=== PATIENT | female | born 1985 | race Caucasian/White ===

== ENCOUNTER 2019-08-14 13:53 | Emergency (ER) | payer BC, SELFPAY ==
[2019-08-14 14:03] VITALS: BP 130/73; PULSE 70; RESP 14; TEMP 36.8; O2SAT 100
--- NOTE | 2019-08-14 14:24 | ED.URI ---
HPI - URI/Sore Throat General Chief Complaint: Upper Respiratory Infection Stated Complaint: Headache/sinus pressure Time Seen by Provider: 08/14/19 14:15 Source: patient Mode of arrival: ambulatory Limitations: no limitations History of Present Illness HPI Narrative: Tricia Christensen is a 33 yo female with a PMH recurrent sinusitis, comes to [facility] care with nasal congestion and frontal headache. Was sent home from work for complaints of not feeling well; states is had no fever, headache on and off for the last 3 to 4 days Related Data Home Medications Medication Instructions Recorded Confirmed sertraline 25 mg PO DAILY 08/14/19 08/14/19 Allergies Allergy/AdvReac Type Severity Reaction Status Date / Time Penicillins Allergy Unknown Other Verified 08/14/19 14:10 Review of Systems Review of Systems: Narrative: CONSTITUTIONAL: Denies fever, chills, sweats. EYES: Denies visual changes, redness, discharge. ENT: Denies rhinorrhea, has congestion, sore throat, otalgia.has sinus headache CARDIOVASCULAR: Denies chest pain, palpitations, edema. RESPIRATORY: Denies dyspnea, wheezing, cough GASTROINTESTINAL: Denies abdominal pain, nausea, vomiting, diarrhea. GENITOURINARY: Denies dysuria, hematuria, abnormal discharge SKIN: Denies rash or itching. NEUROLOGIC: Denies numbness, or focal weakness. PSYCHIATRIC: Denies anxiety or depression. [facility] Family History Family History Other Diabetes mellitus High cholesterol Social History Social History (Updated 08/14/19 @ 14:27 by Giselle Snyder CNP) Smoking status: Current every day smoker Alcohol intake: never Comments At time of signature, I agree with nursing past medical, surgical, social and family history. There is no relevant family history pertinent to the presenting complaint. Exam Narrative: Exam Narrative: GENERAL: This is a well-nourished, well-developed patient, in mild apparent distress. HEAD: normocephalic, atraumatic. EYES: Sclera clear/white. Vision is grossly intact. EARS: External ears normal, auditory canals clear and without drainage, TMs normal without perforation. Hearing grossly intact. NOSE: External nose normal with nasal discharge, nares with redness, has rhinorrhea. Green discharge THROAT: Mucous membranes moist, posterior pharynx erythema NECK: Neck supple, non-tender ly. CARDIOVASCULAR: Regular rate and rhythm without murmurs, gallops, or rubs. RESPIRATORY: Clear to auscultation. Breath sounds equal bilaterally. No wheezes, rales, or rhonchi. GASTROINTESTINAL: Abdomen soft, SKIN: warm, intact with no suspicious lesions or rash, good texture and turgor. NEURO: awake, alert, and oriented to person, place and time. There were no obvious focal neurologic abnormalities. Steady gait EXTREMITIES: Normal range of motion. No edema. BACK: Nontender without deformity or crepitance.. Course Course Emergency Course: Started on Zithromax, mucinex D Vital Signs Vital signs: Vital Signs Temperature 98.2 F 08/14/19 14:03 Pulse Rate 70 08/14/19 14:03 Respiratory Rate 14 08/14/19 14:03 Blood Pressure 130/73 08/14/19 14:03 Pulse Oximetry 100 08/14/19 14:03 Temperature 98.2 F 08/14/19 14:03 Pulse Rate 70 08/14/19 14:03 Respiratory Rate 14 08/14/19 14:03 Blood Pressure 130/73 08/14/19 14:03 Pulse Oximetry 100 08/14/19 14:03 MDM - URI/Sore Throat Differential Diagnosis Differential diagnosis: Likely upper respiratory infection, viral infection, bronchitis, influenza and other Discharge Plan Discharge Clinical Impression: Sinusitis Qualifiers: Sinusitis location: frontal Chronicity: acute Recurrence: recurrent Qualified Code(s): J01.11 - Acute recurrent frontal sinusitis Patient Disposition: Home, Self-Care Condition: Stable Instructions: Antibiotic Form, Sinusitis (ED) Prescriptions: New azithromycin [Zithromax Z-Sarbjit] 250 mg tab
== END 2019-08-14 14:35 | disposition home or self-care (01) ==
PROVIDERS: Emergency Provider Nurse Practitioner
DX: J01.11 Acute recurrent frontal sinusitis (principal); F17.200 Nicotine dependence, unspecified, uncomplicated; F41.9 Anxiety disorder, unspecified
CPT/HCPCS: 99213; G0463